=== PATIENT | female | born 1980 | race Two or more races ===

== ENCOUNTER 2024-08-12 10:17 | Outpatient (RCR) | payer BC, MEDICAID, SELFPAY ==
--- NOTE | 2024-08-12 10:42 | PTNOTE_ITS ---
PT OP Initial Eval Patient Information Outpatient Physical Therapy Treatment Date: 08/12/24 Visit Reasons: UC Dizziness Medical Diagnosis: R42 Start of Care: 08/12/24 Date of Onset: 6 yrs ago Smoking Status Smoking Status: Never smoker Initial Assessment Subjective: Pt is 43 yr old upper sorbian speaking female reports long Hx of dizziness worse with turning head and eyes. When she is dizzy she is unable to do anything but close her eyes and wait until it passes. The dizziness is not daily but comes and goes. This week she has felt it PMH: none reported Pt goal: to get rid of the dizziness. Objective: [place] to R: negative to the L: negative BBQ roll: negative Smooth pursuit: WNL Visual tracking: WNL C/S ArOM: no significant ROM deficits. B Knee AROM: Flexion: full Extension: full Varus stress: positive for mild gapping B knees Jose's: negative Ant drawer: negative Assessment: Pt had negative BPPV testing today and no knee pain was provoked. Pt not likely to benefit from skilled therapy since ssx weren't provoked and don't seem to be caused by positional vertigo. Short Term and Mcc Goals Eval and D/C Treatment Plan Eval and D/C Certification Dates: 08/12/24 to 09/11/24 Procedure Charges OP PT Eval Mod Complex 30 minutes: Yes
== END 2024-09-01 23:59 | disposition home or self-care (01) ==
LOC: CPTX 10:17
PROVIDERS: PCP Family Medicine; Referring Provider Family Medicine; Visit Provider Family Medicine
DX: R42 Dizziness and giddiness (principal)
CPT/HCPCS: 97162

== ENCOUNTER → 2024-10-01 | Outpatient (CLI) | payer BC, MEDICAID, SELFPAY ==
--- NOTE | 2024-10-01 13:26 | XR_ITS ---
Examination: CT abdomen without intravenous contrast. Coronal 2-D reconstructions. Sagittal 2-D reconstructions. Date and time of exam:October 01, 2024 1434 hours INDICATIONS: Right upper abdominal pain hematuria beginning one month ago, history 4 mm right renal calculus on CT study April 19, 2023 CTDI: vol (mGy): 6.17 DLP: (mGycm): 197 Technique: Axial images of the abdomen have been obtained, 3 mm slice thickness, without intravenous contrast 2-D sagittal coronal reconstructions Low dose protocols were performed. One or more of the following dose reduction techniques were used; automated exposure control, adjustment of the mA and/or KV according to patient size, use of iterative reconstruction technique. Findings: Trace pericardial effusion No focal liver or splenic lesions Absent gallbladder No pancreatic or adrenal mass 4 mm medial right renal calculus, no hydronephrosis or ureteral calculi Aorta normal size No bowel obstruction 6 mm fat-containing umbilical hernia The osseous structures are intact IMPRESSION: 4 mm nonobstructing right renal calculus
== END | disposition home or self-care (01) ==
LOC: CCTX 13:09
PROVIDERS: PCP Physician Assistant; Referring Provider Physician Assistant; Visit Provider Physician Assistant
DX: N20.0 Calculus of kidney (principal)
CPT/HCPCS: 74150

== ENCOUNTER → 2025-01-08 | Outpatient (CLI) | payer BC, SELFPAY ==
--- NOTE | 2025-01-08 08:30 | XR_ITS ---
Examination: Screening digital mammography, bilateral Computer aided detection 3-D breast Tomosynthesis, bilateral Date and time of exam: January 08, 2025 0811 hours Compared to mammograms dating to February 10, 2020 Indication: Screening Technique: Nonmagnified MLO, CC views of the breasts to been obtained, reconstructed from 3-D Tomosynthesis images. R2 computer aided detection program utilized for evaluation of suspicious masses and/or abnormal calcifications. 3-D Tomosynthesis images obtained. Findings: The breasts are heterogeneously dense, which may obscure small masses 12 mm focal asymmetry outer right breast CC view, 6.4 cm from the nipple Benign calcifications Impression: BI-RADS Category 0: Incomplete: Need additional imaging evaluation Recommend follow-up spot tomographic views upper outer quadrant right breast to assess 12 mm focal asymmetry outer right breast CC view, 6.4 cm from the nipple as well as right breast sonography to complete the workup
== END | disposition home or self-care (01) ==
PROVIDERS: Referring Provider Obstetrics & Gynecology; Visit Provider Obstetrics & Gynecology
DX: Z12.31 Encounter for screening mammogram for malignant neoplasm of breast (principal); N64.89 Other specified disorders of breast
CPT/HCPCS: 77063; 77067

== ENCOUNTER → 2025-02-12 | Outpatient (CLI) | payer BC, SELFPAY ==
--- NOTE | 2025-02-12 11:00 | XR_ITS ---
Examination: Breast ultrasound, unilateral, right complete Date and time of exam: February 12, 2025 1101 hours INDICATIONS: Mammogram January 08, 2025 12 mm focal asymmetry outer right breast Technique: Real-time hurley scale ultrasonographic imaging performed right breast including all 4 quadrants as well as nipple retroareolar and axillary region. Findings: 11:00 cyst 4 x 5 x 5 mm No solid nodules IMPRESSION: BI-RADS Category 2: Benign findings
== END | disposition home or self-care (01) ==
LOC: CDIM 10:44
PROVIDERS: PCP Physician Assistant; Referring Provider Obstetrics & Gynecology; Visit Provider Obstetrics & Gynecology
DX: N60.01 Solitary cyst of right breast (principal)
CPT/HCPCS: 76641

== ENCOUNTER → 2025-02-24 | Outpatient (CLI) | payer BC, SELFPAY ==
--- NOTE | 2025-02-24 08:45 | XR_ITS ---
Examination: Diagnostic digital mammography, unilateral, right Computer aided detection 3-D breast Tomosynthesis, unilateral Date and time of exam: February 24, 2025 1821 hours INDICATIONS: Mammogram January 08, 2025 12 mm focal asymmetry outer right breast Technique: Nonmagnified MLO, CC views of the right breast have been obtained, reconstructed from 3-D Tomosynthesis images. R2 computer aided detection program utilized for evaluation of suspicious masses and/or abnormal calcifications. 3-D Tomosynthesis images obtained. Findings: The breast is heterogeneously dense, which may obscure small masses No suspicious mass on the spot compression views Impression: BI-RADS category 2: Benign findings Return to your follow-up mammography
== END | disposition home or self-care (01) ==
LOC: CDIM 08:08
PROVIDERS: Referring Provider Obstetrics & Gynecology; Visit Provider Obstetrics & Gynecology
DX: R92.331 Mammographic heterogeneous density, right breast (principal)
CPT/HCPCS: 77061; 77065; G0279